=== PATIENT | female | born 1975 | race Caucasian/White ===

== ENCOUNTER 2016-12-09 14:23 | Emergency (ER) | payer OTHER ==
[2016-12-09 14:32] VITALS: BP 109/68; PULSE 76; TEMP 98.1; BMI 22.7
--- NOTE | 2016-12-09 15:33 | PDOC ---
History of Present Illness - General Chief Complaint: Ear Problem Stated Complaint: EAR PAIN Time Seen by Provider: 12/09/16 14:53 History Source: Patient - History of Present Illness Timing/Duration: reports: other Associated Symptoms: reports: earache. denies: cough, facial pain, fever/chills , nasal congestion, sore throat Past History - Past Medical History Allergies/Adverse Reactions: Allergies Allergy/AdvReac Type Severity Reaction Status Date / Time No Known Allergies Allergy Verified 12/09/16 14:32 Home Medications: Ambulatory Orders No Home Medications 0 dose .ROUTE UTDICT 09/24/13 Carbamide Peroxide [Debrox] 15 ml OT BID #1 bottle 12/09/16 Suicide Attempt (Hx): No Other medical history: denies - Surgical History Cholecystectomy: Yes - Psycho/Social/Smoking Cessation Hx Anxiety: No Suicidal Ideation: No Smoking History: Never smoked Information on smoking cessation initiated: No Hx Alcohol Use: No Drug/Substance Use Hx: No Substance Use Type: None Review of Systems - Review of Systems Constitutional: No: Chills, Fever HEENTM: No: Ear Pain, Throat Pain Respiratory: No: Cough *Physical Exam - Vital Signs Last Vital Signs Temp Pulse Resp BP Pulse Ox 98.1 F 76 17 109/68 99 12/09/16 14:31 12/09/16 14:31 12/09/16 14:31 12/09/16 14:31 12/09/16 14:31 - Physical Exam General Appearance: Yes: Appropriately Dressed. No: Apparent Distress HEENT: positive: Normal Voice, Other (cerumen impaction on L ear). negative: Scleral Icterus (R), Scleral Icterus (L) Neck: positive: Supple. negative: Lymphadenopathy (R), Lymphadenopathy (L) Respiratory/Chest: negative: Respiratory Distress Integumentary: positive: Dry, Warm Neurologic: positive: Fully Oriented, Alert, Normal Mood/Affect Medical Decision Making - Medical Decision Making 12/09/16 15:38 41-year-old female, Currently 3 months pregannt w/ no issues w/ preg so far, here with discomfort to left ear with decreased hearing x several days. No sore throat, fever or chills. Patient well-appearing and stable with cerumen impaction to left ear. Dc with debrox. Reasons to return discussed with patient *DC/Admit/Observation/Transfer Diagnosis at time of Disposition: Cerumen impaction Qualifiers: Laterality: left Qualified Code(s): H61.22 - Impacted cerumen, left ear - Discharge Dispostion Disposition: HOME Condition at time of disposition: Good - Prescriptions Prescriptions: Carbamide Peroxide [Debrox] 15 ml OT BID #1 bottle - Patient Instructions Printed Discharge Instructions: Cerumen Impaction Additional Instructions: Use drops as directed. Return for worsening of symptoms
== END 2016-12-09 15:45 | disposition home or self-care (01) ==
LOC: JERFT 14:23
DX: H61.22 Impacted cerumen, left ear (principal); Z3A.12 12 weeks gestation of pregnancy
CPT/HCPCS: 99281-25

== ENCOUNTER 2017-06-17 19:10 | Inpatient (IN) | payer OTHER ==
[2017-06-17] MEDS ORDERED: PROMETHAZINE HCL 25 MG/1 ML VIAL IVPUSH ONE (20:24)
[2017-06-17] MEDS ORDERED: DINOPROSTONE 10 MG VAGINAL SUPPOSITORY VG ONE (20:24)
[2017-06-17] MEDS ORDERED: BUTORPHANOL TARTRATE 1 MG/ML VIAL IVPUSH PRN (20:24)
[2017-06-17] MEDS ORDERED: ELECTROLYTE-148 SOLN 1,000 ML IV SCH (20:30)
--- NOTE | 2017-06-17 20:32 | HP ---
Past Medical History - Primary Care Physician PCP:: Cirilo Wang - Admission Chief Complaint: 40.1 weeks, GDM, AMA. grandmultiparous , for cervidil inductiom History of Present Illness: 42 yo f g 6 [id number] edc by hank 06/16/17 with hx of GDM on glyburide admitted as per M for cervidil induction, rba discussed, cx 1 cm 50 vx -3 mi, fhr cat 1, occasional contraction, unaware History Source: Patient Limitations to Obtaining History: Language Barrier - Past Medical History Endocrine: Yes: Diabetes Mellitus (on glyburide 5 mg po daily, has not been taking her meds for past 2 to 3 weeks) - Past Surgical History Past Surgical History: Yes: Cholecystectomy Hx Myomectomy: No Hx Transabdominal Cerclage: No - Smoking History Smoking history: Never smoked - Alcohol/Substance Use Hx Alcohol Use: No Home Medications - Allergies Allergies/Adverse Reactions: Allergies Allergy/AdvReac Type Severity Reaction Status Date / Time No Known Allergies Allergy Verified 12/09/16 14:32 - Home Medications Home Medications: Ambulatory Orders Glyburide 2.5 mg PO DAILY 06/10/17 Glyburide 5 mg PO DAILY 06/10/17 Tablet 1 tablet PO DAILY 06/10/17 Review of Systems - Review of Systems Constitutional: reports: No Symptoms Eyes: reports: No Symptoms HENT: reports: No Symptoms Neck: reports: No Symptoms Cardiovascular: reports: No Symptoms Respiratory: reports: No Symptoms Gastrointestinal: reports: No Symptoms Genitourinary: reports: No Symptoms Breasts: reports: No Symptoms Reported Musculoskeletal: reports: No Symptoms Integumentary: reports: No Symptoms Neurological: reports: No Symptoms Endocrine: reports: No Symptoms Hematology/Lymphatic: reports: No Symptoms Psychiatric: reports: No Symptoms Physical Exam - Maternity Constitutional: Yes: Well Nourished, No Distress, Calm Eyes: Yes: WNL, Conjunctiva Clear, EOM Intact HENT: Yes: WNL, Atraumatic, Normocephalic Neck: Yes: WNL, Supple, Trachea Midline Cardiovascular: Yes: WNL, Regular Rate and Rhythm Breast(s): Yes: WNL - Abdominal Exam/OB Fundal Height: 40 Number of Fetuses: Single Presentation: Vertex Regularity: Irritability Intensity: Unaware Monitor Mode: External Heart Rate Location: [facility] Category: I Accelerations: Uniform Decelerations: None - Vaginal Exam/OB Vaginal Bleediing: No Speculum Exam: No Dilatation (cm): 1 cm Effacement (%): 50 Amniotic Membrane Status: Intact Presentation: Vertex/Position Station: -3 - Physical Exam Musculoskeletal: Yes: WNL Extremities: Yes: WNL Edema: Yes Edema: LLE: Trace, RLE: Trace Deep Tendon Reflex Grade: Normal +2 Psychiatric: Yes: WNL Hemorrhage Risk Assessment - Risk Factors Medium Risk Factors: Yes: Multiple gestation Risk Score: 1 Risk Level: Medium Risk Problem List - Problems (1) Post term over 40 weeks Code(s): O48.0 - POST-TERM (2) Gestational diabetes mellitus (GDM) affecting Code(s): O24.419 - GESTATIONAL DIABETES MELLITUS IN , UNSP CONTROL (3) Advanced maternal age (AMA) in Code(s): [id number] - (4) Multiparity, grand, in labor and delivery Code(s): O09.40 - SUPERVISION OF W GRAND MULTIPARITY, UNSP TRIMESTER Qualifiers: Trimester: third trimester Qualified Code(s): O09.43 - Supervision of with grand multiparity, third trimester; O09.43 - Supervision of with grand multiparity, third trimester Assessment/Plan admit for cervidil induction , risks discussed , agreed for cervidil induction, monitor BGM
[2017-06-17 21:05] LABS: BASOPHIL 0.4 % (0-2.0); MCH 30.1 pg (25.7-33.7); MCHC 34.2 g/dl (32.0-36.0); MEAN CELL VOLUME 87.9 fl (80-96); MEAN PLT VOLUME 8.5 fl (7.5-11.1); NEUTROPHILS 67.1 % (42.8-82.8); PLATELET COUNT 209 K/MM3 (134-434); RDW 14.2 % (11.6-15.6); WHITE BLOOD COUNT 7.2 K/mm3 (4.0-10.0)
[2017-06-17 21:19] LABS: INR 0.92 (0.82-1.09); PROTHROMBIN TIME (PATIENT) 10.4 SEC (9.98-11.88)
[2017-06-17 22:00] LABS: ANION GAP 12 (8-16); CALCIUM 8.7 mg/dL (8.5-10.1); CO2 19 mmol/L (21-32); CREATININE 0.4 mg/dL (0.55-1.02); GLUCOSE,RANDOM 140 mg/dL (74-106)
[2017-06-17 22:24] VITALS: BMI 30.5
[2017-06-18] MEDS ORDERED: OXYTOCIN 15 UNITS/ LR 250 ML 250 ML IVPB SCH (09:00)
[2017-06-18] MEDS ORDERED: BUTORPHANOL TARTRATE 1 MG/ML VIAL IVPUSH ONE (17:30)
[2017-06-18] MEDS ORDERED: OXYTOCIN 20 UNITS in 0.9% NS 1,000 ML IV SCH (18:00)
--- NOTE | 2017-06-18 18:18 | PN ---
Progress Note (short form) - Note Progress Note: Called by Nurse to examined multigravida patient who was admitted by Dr. Da Silva this am. Came to evaluate patient; she's status post stadol for pain. FHR : Reassuring [place] : + regular contractions VE : 8-9 / 90 / 0 AROM ( clear ) A/P : Active labor Anticipate
[2017-06-18] MEDS ORDERED: BISACODYL 10 MG SUPP.RECT RC PRN (20:54)
[2017-06-18] MEDS ORDERED: METHYLERGONOVINE MALEATE 0.2 MG/1 ML AMP IM PRN (20:54)
[2017-06-18] MEDS ORDERED: BENZOCAINE 20% 57 GM BOTTLE TP PRN (20:54)
[2017-06-18] MEDS ORDERED: WITCH HAZEL 50% (TUCKS) 40 PAD/JAR PAD TP PRN (20:54)
[2017-06-18] MEDS ORDERED: BENZOCAINE 28 GM HEMORRHOIDAL OINTMENT TP PRN (20:54)
--- NOTE | 2017-06-18 20:59 | PN ---
Delivery - Delivery Vaginal Delivery: Spontaneous Type of Anesthesia: None Episiotomy/Laceration: None EBL (cc): 300 Delivery, Single - Stages of Labor Date 1st Stage Initiatied: 06/18/17 Time 1st Stage Initiated: 10:00 Date 2nd Stage Initiated: 06/18/17 Time 2nd Stage Initiated: 18:30 Date of Delivery: 06/18/17 Time of Delivery: 18:38 Time Placenta Delivered: 18:40 - Condition of Infant Pharmacy Consultant/Nurse Ortho Present: No Infant Gender: Female Weight: 8 lb 8 oz Position: Left, OA Total Hours ROM (Hrs/Mins): 28min - 1 Minute Total Score: 9 5 Minutes Total Score: 9 - Feeding Plan Initial Plan: Exclusive throughout hospitalization Remarks - Remarks Remarks: Normal spontaneous vaginal delivery of a live girl over intact perineum. Nose / Oropharynx suctioned @ perineum. Cord clamped and cut Placenta expelled spontaneously intact.
[2017-06-18] MEDS ORDERED: D5W-LR W/ 20 UNITS OXYTOCIN 1,000 ML IV SCH (21:00)
[2017-06-19] MEDS: IBUPROFEN 600 MG TABLET (FP) PO PRN ×2 (05:51→23:09)
[2017-06-19] MEDS: ACETAMINOPHEN 325 MG TABLET (FP) PO PRN ×2 (05:52→23:08)
[2017-06-19] MEDS: FERROUS SO4 325 MG TABLET (FP) PO SCH ×3 (08:16→18:11)
[2017-06-19 08:43] LABS: BASOPHIL 0.5 % (0-2.0); EOSINOPHIL 0.4 % (0-4.5); MCHC 34.3 g/dl (32.0-36.0); MEAN CELL VOLUME 87.5 fl (80-96); MEAN PLT VOLUME 8.3 fl (7.5-11.1); NEUTROPHILS 74.6 % (42.8-82.8); PLATELET COUNT 208 K/MM3 (134-434); RDW 14.5 % (11.6-15.6); WHITE BLOOD COUNT 10.7 K/mm3 (4.0-10.0)
[2017-06-19] MEDS: PRENATAL VITAMINS W/ FOLIC ACID TABLET (FP) PO SCH (09:47)
--- NOTE | 2017-06-19 16:21 | PN ---
Progress Note (short form) - Note Progress Note: ppd 1 doing well, no excess vaginal bleeding CBC, BMP 06/19/17 07:00 06/17/17 20:45 Last Vital Signs Temp Pulse Resp BP Pulse Ox 97.9 F 79 18 114/65 99 06/19/17 13:54 06/19/17 13:54 06/19/17 13:54 06/19/17 13:54 06/18/17 19:40 abdomen soft , non tender , no cva uterus firm lochia mild plan ambulate . d/c home in am Problem List - Problems (1) Post term over 40 weeks Code(s): O48.0 - POST-TERM (2) Gestational diabetes mellitus (GDM) affecting Code(s): O24.419 - GESTATIONAL DIABETES MELLITUS IN , UNSP CONTROL (3) Advanced maternal age (AMA) in Code(s): [id number] - (4) Multiparity, grand, in labor and delivery Code(s): O09.40 - SUPERVISION OF W GRAND MULTIPARITY, UNSP TRIMESTER Qualifiers: Trimester: third trimester Qualified Code(s): O09.43 - Supervision of with grand multiparity, third trimester; O09.43 - Supervision of with grand multiparity, third trimester
[2017-06-19] MEDS ORDERED: SENNOSIDES/DOCUSATE COMBO (SENNA PLUS) TABLET (UD) PO PRN (22:00)
--- NOTE | 2017-06-20 07:49 | DS ---
Physical Exam-[employer]ER Vital Signs: Vital Signs Temperature 98.2 F 06/19/17 21:35 Pulse Rate 79 06/19/17 21:35 Respiratory Rate 17 06/19/17 21:35 Blood Pressure 103/72 06/19/17 21:35 O2 Sat by Pulse Oximetry (%) 99 06/18/17 19:40 Constitutional: Yes: Well Nourished, No Distress, Calm Eyes: Yes: WNL, Conjunctiva Clear, EOM Intact HENT: Yes: WNL, Atraumatic, Normocephalic Neck: Yes: WNL, Supple, Trachea Midline Cardiovascular: Yes: WNL, Regular Rate and Rhythm Respiratory: Yes: WNL, Regular, CTA Bilaterally Gastrointestinal: Yes: WNL ...Rectal Exam: Yes: WNL Renal/: Yes: WNL External Genitalia: Yes: Normal ....Post : Yes: Uterus firm, Uterus non-tender, Slight lochia rubra Breast(s): Yes: WNL Musculoskeletal: Yes: WNL Extremities: Yes: WNL Edema: No Integumentary: Yes: WNL Neurological: Yes: WNL, Alert, Oriented ...Motor Strength: WNL Psychiatric: Yes: WNL, Alert, Oriented Labs: CBC, BMP 06/19/17 07:00 06/17/17 20:45 Delivery - Delivery Vaginal Delivery: Spontaneous Type of Anesthesia: None Episiotomy/Laceration: None EBL (cc): 300 Delivery, Single - Stages of Labor Date 1st Stage Initiatied: 06/18/17 Time 1st Stage Initiated: 10:00 Date 2nd Stage Initiated: 06/18/17 Time 2nd Stage Initiated: 18:30 Date of Delivery: 06/18/17 Time of Delivery: 18:38 Time Placenta Delivered: 18:40 Placenta: Yes: Spontaneous - Condition of Infant Adult Neuropsychologist/Industrial Accountant Present: No Infant Gender: Female Weight: 8 lb 8 oz Position: Left, OA Total Hours ROM (Hrs/Mins): 28min - 1 Minute Total Score: 9 5 Minutes Total Score: 9 - Feeding Plan Initial Plan: Exclusive throughout hospitalization Discharge Summary Reason For Visit: INDUCTION OF LABOR Current Active Problems Advanced maternal age (AMA) in (Acute) Gestational diabetes mellitus (GDM) affecting (Acute) Multiparity, grand, in labor and delivery (Acute) Post term over 40 weeks (Acute) Procedures: Principal: Hospital Course: uneventful Condition: Good - Instructions Diet, Activity, Other Instructions: regular diet , follow uphrh care 4 weeks Referrals: Cirilo Wang MD [Staff Physician] - Disposition: HOME - Home Medications Comprehensive Discharge Medication List: Ambulatory Orders Tablet 1 tablet PO DAILY 06/10/17 Ferrous Sulfate 1 tab PO DAILY 06/18/17 Ibuprofen [Motrin -] 600 mg PO QID #28 tablet 06/19/17
[2017-06-20] MEDS: FERROUS SO4 325 MG TABLET (FP) PO SCH (08:14)
[2017-06-20 08:45] VITALS: BP 107/62; PULSE 63; TEMP 98.4
[2017-06-20] MEDS: PRENATAL VITAMINS W/ FOLIC ACID TABLET (FP) PO SCH (09:13)
== END 2017-06-20 11:00 | disposition home or self-care (01) | DRG 560 ==
LOC: JLDR 19:10 → J3W 06-18 20:07
PROVIDERS: ADMIT Obstetrics & Gynecology; ATTEND Obstetrics & Gynecology
PROC: 10E0XZZ Delivery of Products of Conception, External Approach (ICD-10-PCS; principal; 2017-06-18)
DX: O48.0 Post-term pregnancy (principal); O24.415 Gestational diabetes mellitus in pregnancy, controlled by oral hypoglycemic drugs; Z3A.40 40 weeks gestation of pregnancy; Z37.0 Single live birth
CPT/HCPCS: 36415; 59409; 80048; 85025; 85610; 85730; 86593; 86850; 86900; 86901